=== PATIENT | female | born 1985 | race Caucasian/White ===

== ENCOUNTER → 2017-06-09 09:48 | Outpatient (CLI) | payer OTHER, SELFPAY ==
[2017-06-09 11:00] LABS: Estradiol < 11.0 pg/mL; Follicle Stimulating Hormone 1.5 mIU/mL; Luteinizing Hormone 0.8 mIU/mL
== END ==
DX: N92.6 Irregular menstruation, unspecified (principal)
CPT/HCPCS: 36415; 82670; 83001; 83002